=== PATIENT | male | born 1980 | race Caucasian/White ===

== ENCOUNTER 2017-05-03 09:35 | Emergency (ER) | payer OTHER ==
[~2017-05-03] VITALS: Ht 165.1 cm; Wt 68.0 kg
[2017-05-03 09:37] VITALS: BP 144/94; Ht 165.1 cm; Wt 68.0 kg
[2017-05-04 10:30] LABS: RAPID PLASMA REAGIN Non Reactive (Non Reactive)
== END 2017-05-03 10:50 | disposition other institution (70) ==
LOC: ED 09:35
PROVIDERS: Emergency Medicine
DX: Z02.89 Encounter for other administrative examinations (principal); A64 Unspecified sexually transmitted disease; F17.210 Nicotine dependence, cigarettes, uncomplicated; F15.20 Other stimulant dependence, uncomplicated; Z88.0 Allergy status to penicillin; Z59.0 Homelessness
CPT/HCPCS: 87491; 87591; 99406; J0696

== ENCOUNTER 2017-05-03 09:35 | Emergency (ER) | payer OTHER | END 2017-05-03 10:50 | disposition other institution (70) | LOC: ED 09:35 | DX: Z02.89 Encounter for other administrative examinations (principal) ==